=== PATIENT | female | born 1970 | race Caucasian/White ===

== ENCOUNTER 2017-06-12 14:54 | Inpatient (IN) | payer SELFPAY ==
[~2017-06-12] VITALS: Ht 165.1 cm; Wt 59.2 kg
[~2017-06-12 14:54] MED LIST: ZYPR10TA PO
[2017-06-12 15:05] VITALS: BP 169/96; PULSE 86; RESP 16; TEMP 98.2; O2SAT 100
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
--- NOTE | 2017-06-12 21:23 | PD ---
Physical Exam Narrative This patient was seen by previous provider as well as shoe parts caser. Pt was found sleeping in the park and was brought in for evaluation. Pt supposedly has bipolar disorder and schizophrenia and unable to take her of herself. I was asked to Sh[place] Act her in case she wants to leave. I do feel that pt is unable to care for herself so shaver act was signed. Data Data Last Documented VS Vital Signs Date Time Temp Pulse Resp B/P (MAP) Pulse Ox O2 Delivery O2 Flow Rate FiO2 06/13/17 15:00 63 18 145/89 (107) Room Air 06/13/17 09:49 98.4 100 Orders Orders Psych Screen (06/12/17 17:06) Diet Regular Basic (06/12/17 Dinner) Diet Regular Basic (06/13/17 Breakfast) Diet Regular Basic (06/13/17 Lunch) Diet Regular Basic (06/13/17 Dinner) MDM Supervised Visit with TWILA: Yes Diagnosis Primary Impression: Medical clearance for psychiatric admission Disposition: DISCHARGE HOME Condition: Stable Idalia Mcfarlane DO Jun 12, 2017 21:23
--- NOTE | 2017-06-12 21:23 | PD ---
Physical Exam Narrative This patient was seen by previous provider as well as disease case manager rn. Pt was found sleeping in the park and was brought in for evaluation. Pt supposedly has bipolar disorder and schizophrenia and unable to take her of herself. I was asked to [place] Act her in case she wants to leave. I do feel that pt is unable to care for herself so shaver act was signed. Data Data Last Documented VS Vital Signs Date Time Temp Pulse Resp B/P (MAP) Pulse Ox O2 Delivery O2 Flow Rate FiO2 06/13/17 15:00 63 18 145/89 (107) Room Air 06/13/17 09:49 98.4 100 Orders Orders Psych Screen (06/12/17 17:06) Diet Regular Basic (06/12/17 Dinner) Diet Regular Basic (06/13/17 Breakfast) Diet Regular Basic (06/13/17 Lunch) Diet Regular Basic (06/13/17 Dinner) MDM Supervised Visit with TWILA: Yes Diagnosis Primary Impression: Medical clearance for psychiatric admission Disposition: DISCHARGE HOME Condition: Stable Idalia Mcfarlane DO Jun 12, 2017 21:23
--- NOTE | 2017-06-12 21:23 | PD ---
Physical Exam Narrative This patient was seen by previous provider as well as bilingual patient support caseworker. Pt was found sleeping in the park and was brought in for evaluation. Pt supposedly has bipolar disorder and schizophrenia and unable to take her of herself. I was asked to [place] Act her in case she wants to leave. I do feel that pt is unable to care for herself so shaver act was signed. Data Data Last Documented VS Vital Signs Date Time Temp Pulse Resp B/P (MAP) Pulse Ox O2 Delivery O2 Flow Rate FiO2 06/13/17 15:00 63 18 145/89 (107) Room Air 06/13/17 09:49 98.4 100 Orders Orders Psych Screen (06/12/17 17:06) Diet Regular Basic (06/12/17 Dinner) Diet Regular Basic (06/13/17 Breakfast) Diet Regular Basic (06/13/17 Lunch) Diet Regular Basic (06/13/17 Dinner) MDM Supervised Visit with TWILA: Yes Diagnosis Primary Impression: Medical clearance for psychiatric admission Disposition: DISCHARGE HOME Condition: Stable Idalia Mcfarlane DO Jun 12, 2017 21:23
[2017-06-12 21:35] VITALS: BP 185/105; PULSE 73; RESP 15; O2SAT 99
[2017-06-13 02:12] VITALS: BP 144/86; PULSE 73; RESP 18; O2SAT 100
[2017-06-13 09:49] VITALS: BP 141/93; PULSE 83; RESP 18; TEMP 98.4; O2SAT 100
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
[2017-06-13 15:00] VITALS: BP 145/89; PULSE 63; RESP 18
[2017-06-13] MEDS ORDERED: ALUMINUM/MAGNESIUM/SIMETH 30 ML CUP PO PRN (16:00)
[2017-06-13] MEDS ORDERED: LORazepam 0.5 MG TAB PO PRN (16:00)
[2017-06-13] MEDS ORDERED: MAGNESIUM HYDROXIDE SUSP 30 ML CUP PO PRN (16:00)
[2017-06-13] MEDS ORDERED: NICOTINE 21 MG/24 HR PATCH T-DERMAL SCH (16:00)
[2017-06-13] MEDS ORDERED: LORazepam 2 MG/ML VIAL IM PRN ×2 (16:00)
[2017-06-13] MEDS ORDERED: LORazepam 1 MG TAB PO PRN (16:00)
[2017-06-13 18:07] VITALS: BP 176/106; PULSE 85; RESP 18; TEMP 98.2; O2SAT 100
[2017-06-13] MEDS ORDERED: cloNIDine HCL 0.1 MG TAB PO ONE (19:15)
[2017-06-13 20:10] VITALS: BP 153/78; PULSE 61; RESP 16; TEMP 98.5; O2SAT 99
[2017-06-13] MEDS: ACETAMINOPHEN 325 MG TAB PO PRN (20:57)
[2017-06-14 05:28] VITALS: BP 151/79; PULSE 70; RESP 16; TEMP 97.9; O2SAT 99
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
[2017-06-14 17:33] VITALS: BP 152/77; PULSE 63; RESP 16; TEMP 98.2; O2SAT 100
[2017-06-14] MEDS: OLANZapine 5 MG TAB PO SCH (21:00)
[2017-06-15 06:08] VITALS: BP 129/61; PULSE 58; RESP 16; TEMP 98.2; O2SAT 98
[2017-06-15] MEDS: OLANZapine 5 MG TAB PO SCH ×2 (09:00→21:45)
--- NOTE | 2017-06-15 14:52 | HHI.PYPN ---
Subjective Remarks Patient was seen and case discussed with nursing. Patient is very oppositional and resistant during the interview. She has been refusing her Zyprexa. However per nursing and during the interview no psychotic symptoms were elicited. Patient denies is psychiatric history but I do not have her records to compare. She was asked to come out to the dayroom where she could be better observed. Continues to state that she was trying to visit her cousin lives here. Mental Status Examination Appearance: Appropriate Consciousness: Alert Motor Activity: Normal gait Speech: Hesitant Language: Adequate Fund of Knowledge: Adequate Attention and Concentration: Other (distracted) Memory: Impaired Mood: Other ("fine") Affect: Blunt Thought Process & Associations: Linear, Other (diminished) Thought Content: Other (could be responding) Hallucination Type: None Delusion Type: Other (none elicited today) Suicidal Ideation: No Suicidal Plan: No Suicidal Intention: No Homicidal Ideation: No Homicidal Plan: No Homicidal Intention: No Insight: Poor Judgment: Poor Results Vitals/IOs Vital Signs Date Time Temp Pulse Resp B/P (MAP) Pulse Ox O2 Delivery O2 Flow Rate FiO2 06/15/17 06:08 98.2 58 16 129/61 (83) 98 06/13/17 15:00 Room Air Assessment & Plan Problem List: (1) Schizoaffective disorder ICD Codes: F25.9 - Schizoaffective disorder, unspecified Status: Acute Assessment & Plan Patient has to spend time in a dayroom away from her room Justification for Cont. Inpt. Patient would decompensate in a less restrictive setting Problem Qualifiers (1) Schizoaffective disorder: Qualified Codes: F25.9 - Schizoaffective disorder, unspecified Larry Beckford DO Jun 15, 2017 14:52
[2017-06-15 17:37] VITALS: BP 164/79; PULSE 58; RESP 16; TEMP 99.1; O2SAT 99
[2017-06-15 17:49] VITALS: BP 165/75
[2017-06-16 05:55] VITALS: BP 154/74; PULSE 66; RESP 16; TEMP 97.9; O2SAT 97
--- NOTE | 2017-06-16 12:28 | HHI.PYPN ---
Subjective Remarks Patient was seen and case discussed with nursing. Patient is less seclusive today and was interviewed in a dayroom. She however remains very oppositional and refuses to take medication. It is unclear if she has a psychotic disorder she denied symptoms during the interview and was not seen with any bizarre behavior thinking by nursing throughout the day. Largely seclusive to self. Asking to call her son Mental Status Examination Appearance: Appropriate Consciousness: Alert Motor Activity: Normal gait Speech: Hesitant, Slow Language: Adequate Fund of Knowledge: Adequate Attention and Concentration: Other (distracted) Memory: Impaired Mood: Other ("fine") Affect: Blunt Thought Process & Associations: Linear, Other (diminished) Thought Content: Other (could be responding) Hallucination Type: None Delusion Type: Other (none elicited today) Suicidal Ideation: No Suicidal Plan: No Suicidal Intention: No Homicidal Ideation: No Homicidal Plan: No Homicidal Intention: No Insight: Poor Judgment: Poor Results Vitals/IOs Vital Signs Date Time Temp Pulse Resp B/P (MAP) Pulse Ox O2 Delivery O2 Flow Rate FiO2 06/16/17 05:55 97.9 66 16 154/74 (100) 97 06/13/17 15:00 Room Air Assessment & Plan Problem List: (1) Schizoaffective disorder ICD Codes: F25.9 - Schizoaffective disorder, unspecified Status: Acute Assessment & Plan Continue current treatment plan Justification for Cont. Inpt. Patient will decompensate in a less restrictive setting Problem Qualifiers (1) Schizoaffective disorder: Qualified Codes: F25.9 - Schizoaffective disorder, unspecified Larry Beckford DO Jun 16, 2017 12:28
[2017-06-16 16:36] VITALS: BP 143/89; PULSE 56; RESP 18; TEMP 98; O2SAT 100
[2017-06-17 05:33] VITALS: BP 147/72; PULSE 74; RESP 16; TEMP 97.8; O2SAT 97
[2017-06-17] MEDS: OLANZapine 5 MG TAB PO SCH ×2 (08:42→22:26)
[2017-06-17 08:59] LABS: AUTOMATED NEUTROPHIL # 5.5 TH/MM3 (1.8-7.7); BASOPHIL # 0.1 TH/MM3 (0-0.2); BASOPHIL % 0.7 % (0.0-2.0); EOSINOPHIL # 0.1 TH/MM3 (0-0.4); EOSINOPHIL % 1.8 % (0.0-4.0); HEMATOCRIT 44.1 % (35.0-46.0); LYMPH % 26.1 % (9.0-44.0); LYMPHOCYTE # 2.1 TH/MM3 (1.0-4.8); MEAN CELL VOLUME 84.7 FL (80.0-100.0); MEAN CORPUSCULAR HEMOGLOBIN 28.8 PG (27.0-34.0); MEAN PLATELET VOLUME 8.2 FL (7.0-11.0); MONO % 3.5 % (0.0-8.0); MONOCYTE # 0.3 TH/MM3 (0-0.9); NEUT % 67.9 % (16.0-70.0); PLATELET COUNT 290 TH/MM3 (150-450); WHITE BLOOD COUNT 8.1 TH/MM3 (4.0-11.0)
[2017-06-17] MEDS: ACETAMINOPHEN 325 MG TAB PO PRN (09:17)
[2017-06-17 09:42] LABS: AST (GOT) 27 U/L (15-37); BICARBONATE 25.9 MEQ/L (21.0-32.0); BLOOD UREA NITROGEN 10 MG/DL (7-18); CALCIUM 9.3 MG/DL (8.5-10.1); CHLORIDE 106 MEQ/L (98-107); CREATININE 1.09 MG/DL (0.50-1.00); GLOMERULAR FILTRATION RATE 54 ML/MIN (>89); GLUCOSE,RANDOM 91 MG/DL (74-106); SODIUM (NA) 140 MEQ/L (136-145)
[2017-06-17 09:47] LABS: ALKALINE PHOSPHATASE 67 U/L (45-117); ALT (GPT) 24 U/L (10-53); CHOLESTEROL 149 MG/DL (120-200); CHOLESTEROL/ HDL RATIO 2.55 RATIO; DIRECT BILIRUBIN ADULT 0.1 MG/DL (0.0-0.2); HDL CHOLESTEROL 58.3 MG/DL (40.0-60.0); INDIRECT BILIRUBIN 0.3 MG/DL (0.0-0.8); LDL CHOLESTEROL 62 MG/DL (0-99); TOTAL BILIRUBIN ADULT 0.4 MG/DL (0.2-1.0); TOTAL PROTEIN 7.9 GM/DL (6.4-8.2); TRIGLYCERIDES 145 MG/DL (42-150)
--- NOTE | 2017-06-17 11:16 | PD.TTN ---
Patient Problems 1. Discharge planning 2. Medication compliance 3. Knowledge deficit 4. Lack of coping skills Progress Toward Goals Provider Present: Dr. Crow Crowley Provider Input: Patient is new to the unit and has been started on medication that was previously prescribed to her upon her last discharge in 2010. Patient is cooperative and calm and provides some information in regards to admission. Nurse(s) Input: Patient has been noncompliant with medications and has remained isolated in room since admission. No behavioral issues on the unit. Psychiatric Counselors Present: URIEL Soto Psych Therapist Input: Patient is cooperative and pleasant with counselor. patient is oriented x3 but does not have insight upon admission. Patient states that once she is discharged, she will go live with son Luis Felipe in [place]. It is unclear that patient will be able to reside with him. Group Spec/RT/OT/GRANGER Present: ELKIN Guzman Group Spec/RT/OT/GRANGER Input: Tristin is new to unit and attends selective groups. Kenia ToscanoHalley Jun 17, 2017 11:16
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
[2017-06-17 16:42] LABS: HEMOGLOBIN A1C 5.6 % (4.3-6.0)
[2017-06-17 17:52] VITALS: BP 165/95; PULSE 63; RESP 16; TEMP 98.5; O2SAT 100
[2017-06-18 06:01] VITALS: BP 137/79; PULSE 53; RESP 16; O2SAT 98
[2017-06-18] MEDS: OLANZapine 5 MG TAB PO SCH ×2 (09:30→21:10)
--- NOTE | 2017-06-18 13:51 | HHI.PYPN ---
Subjective Remarks Patient seen for follow-up, chart reviewed. Discussion with nursing staff reported patient mostly seclusive, refusing medications but started complying last night noted to be laughing inappropriately at times. Patient was found sitting in day room, and was noted to be calm, cooperative with interview. Patient states feeling well, with no physical complaints, sleeping well, mood having been "the same.....good". She continues to state that she has no place as she was planning to stay with cousin and no intention on returning back to [place] as she states did not want to feel alone. As per collateral information acquired, patient's son and stated that there no agreement to have patient live with him or that he was going to send money for her. Patient states that her children have not lived with her as a result of her divorce which occured 10 years ago. At this time patient denies any perceptual disturbances. Review of Systems Except as stated in HPI: all other systems reviewed are Neg Mental Status Examination Appearance: Appropriate Consciousness: Alert Orientation: Person, Place Motor Activity: Normal gait Speech: Hesitant, Slow Language: Adequate Fund of Knowledge: Adequate Attention and Concentration: Adequate Memory: Impaired Mood: Other ("the same...good") Affect: Other (constricted) Thought Process & Associations: Linear, Other Thought Content: Other (limited responses) Hallucination Type: None Delusion Type: Other (belief of having made plans with family members) Suicidal Ideation: No Suicidal Plan: No Suicidal Intention: No Homicidal Ideation: No Homicidal Plan: No Homicidal Intention: No Insight: Poor Judgment: Poor Results Vitals/IOs Vital Signs Date Time Temp Pulse Resp B/P (MAP) Pulse Ox O2 Delivery O2 Flow Rate FiO2 06/18/17 06:01 53 16 137/79 (98) 98 06/17/17 17:52 98.5 Assessment & Plan Problem List: (1) Schizoaffective disorder ICD Codes: F25.9 - Schizoaffective disorder, unspecified Status: Acute Assessment & Plan Patient at this time has no recollection of past events nor past hospital visit here at [facility]. Patient although calm and pleasant has been disorganized recently which has reflected an inability of her to care for herself likely secondary to psychosis. Patient to continue current treatment. Treatment team to find appropriate placement. Justification for Cont. Inpt. At risk for further decompensation if at lower level of care. Discharge Planning Patient to be discharged to family or homeless longterm. Problem Qualifiers (1) Schizoaffective disorder: Qualified Codes: F25.9 - Schizoaffective disorder, unspecified Enoc Crowley MD Jun 18, 2017 13:51
[2017-06-18 15:38] LABS: BICARBONATE 22.7 MEQ/L (21.0-32.0); CALCIUM 8.6 MG/DL (8.5-10.1); CREATININE 0.96 MG/DL (0.50-1.00)
[2017-06-18 18:19] VITALS: BP 104/58; PULSE 57; RESP 18; TEMP 98.1; O2SAT 97
[2017-06-19 06:35] VITALS: BP 132/70; PULSE 58; RESP 16; TEMP 98.4; O2SAT 98
--- NOTE | 2017-06-19 08:45 | PD.TTN ---
Patient Problems 1. Discharge planning 2. Medication compliance 3. Knowledge deficit 4. Lack of coping skills Progress Toward Goals Provider Present: Dr. Crow Crowley Provider Input: Patient started medication regiment on the unit and will be monitored to see side effects and lessening of symptoms. Patient is pleasant but is observed to have bizarre features. Nurse(s) Input: Patient started medication regiment and will be monitored for progress. Patient continues to be seclusive and not very verbal. Psychiatric Counselors Present: URIEL Soto Psych Therapist Input: Patient continues to have no insight upon admission. Patient was made aware that she is unable to stay with son who lives in [place]. Counselor was also informed that family memebers that live locally do not want to be contacted about patient's progress. Patient will be going to court tomorrow and appropriate safe discharge plans are being discussed for patient. Group Spec/RT/OT/GRANGER Present: ELKIN Fong Group Spec/RT/OT/GRANGER Input: Patient does not attend group and is seclusive to room. Kenia Toscano Jun 19, 2017 08:45
[2017-06-19] MEDS: OLANZapine 5 MG TAB PO SCH ×2 (09:09→21:34)
--- NOTE | 2017-06-19 17:00 | HHI.PYPN ---
Subjective Remarks Patient seen follow, chart review. Patient states having slept well, no problem eating and drinking, and upon bowel movement, patient states that her mood has been "good". Patient denies any perceptual disturbances or delusions at this time.. Patient still continues to report difficulty with recollection of previous events and continues to believe that her son is trying to send money for her to move up to [place] with him. Patient at this time states that she has no current plan of what she will do when she leaves the hospital or where she will go to live. Review of Systems Except as stated in HPI: all other systems reviewed are Neg Mental Status Examination Appearance: Appropriate Consciousness: Alert Orientation: Person, Place Motor Activity: Normal gait Speech: Slow Language: Adequate Fund of Knowledge: Adequate Attention and Concentration: Adequate Memory: Impaired Mood: Other ("good") Affect: Other (constricted) Thought Process & Associations: Linear Thought Content: Other (limited responses) Hallucination Type: None Delusion Type: Other (belief of having made plans with family members) Suicidal Ideation: No Suicidal Plan: No Suicidal Intention: No Homicidal Ideation: No Homicidal Plan: No Homicidal Intention: No Insight: Poor Judgment: Poor Results Vitals/IOs Vital Signs Date Time Temp Pulse Resp B/P (MAP) Pulse Ox O2 Delivery O2 Flow Rate FiO2 06/19/17 06:35 98.4 58 16 132/70 (90) 98 Assessment & Plan Problem List: (1) Schizoaffective disorder ICD Codes: F25.9 - Schizoaffective disorder, unspecified Status: Acute Assessment & Plan Patient at this time denies any mood symptoms, perceptual disturbances but does have impaired memory concerning her psychiatric history as well as as recent events pertaining to her admission and of her having spoken to family members. Patient appears to be apathetic nor expressing concern for her current homelessness as well as not having any financial or social support at this time. Patient has been compliant with medications and has not had any behavioral issues while on the unit. Patient will present to mental health court tomorrow for petition for involuntary hospitalization admission as patient at this time is unable to care for self. Patient with poor insight and judgment at this time. Continue current treatment, discharge planning in progress Justification for Cont. Inpt. At risk for further decompensation if at lower level of care Discharge Planning Unclear with the patient will be discharged to homeless intermediate or back to family once psychiatrically stable. Problem Qualifiers (1) Schizoaffective disorder: Qualified Codes: F25.9 - Schizoaffective disorder, unspecified Enoc Crowley MD Jun 19, 2017 17:00
[2017-06-19 17:34] VITALS: BP 131/79; PULSE 78; RESP 18; TEMP 97.6; O2SAT 100
[2017-06-19] MEDS: BACITRACIN TOP OINT 15 GM TUBE TOPICAL SCH (20:00)
[2017-06-20 06:32] VITALS: BP 142/91; PULSE 65; RESP 16; O2SAT 99
[2017-06-20] MEDS: OLANZapine 5 MG TAB PO SCH (09:00)
[2017-06-20] MEDS: BACITRACIN TOP OINT 15 GM TUBE TOPICAL SCH (09:00)
[2017-06-20] MEDS ORDERED: OLAN5TAB PO (10:47)
[2017-06-20] MEDS ORDERED: BACI500O2 TOPICAL (10:47)
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
== END 2017-06-20 13:40 | disposition home or self-care (01) | DRG 885 ==
LOC: NEPD 14:54 → NEDA 06-13 16:02 → H260 06-13 17:56
PROVIDERS: ADMIT Student in an Organized Health Care Education/Training Program; ATTEND Student in an Organized Health Care Education/Training Program
DX: F25.9 Schizoaffective disorder, unspecified (principal); Z59.0 Homelessness
CPT/HCPCS: 80048; 80061; 80076; 83036; 85025